=== PATIENT | male | born 1995 | race Caucasian/White ===

== ENCOUNTER 2018-06-24 17:55 | Emergency (ER) | payer MEDICAID ==
[~2018-06-24] VITALS: Ht 180.3 cm; Wt 69.5 kg
[~2018-06-24 17:55] MED LIST: ALBE200T2 PO; CYCL-1 PO; NAPR-1166 PO
[2018-06-24 18:32] VITALS: BP 142/55
[2018-06-24] MEDS ORDERED: HYDR-3965 PO (20:30)
[2018-06-24] MEDS ORDERED: HYDROcodone/acetaminophen 5mg/325mg tablet PO ONE (20:30)
== END 2018-06-24 21:09 | disposition home or self-care (01) ==
LOC: ER 17:56
DX: S62.336A Displaced fracture of neck of fifth metacarpal bone, right hand, initial encounter for closed fracture (principal); Z79.899 Other long term (current) drug therapy; Y04.0XXA Assault by unarmed brawl or fight, initial encounter; Y93.71 Activity, boxing; Y92.89 Other specified places as the place of occurrence of the external cause; Y99.8 Other external cause status
CPT/HCPCS: 29125; 73130; 99283

== ENCOUNTER 2019-03-18 18:04 | Emergency (ER) | payer MEDICAID ==
[~2019-03-18] VITALS: Ht 180.3 cm; Wt 80.0 kg
[2019-03-18 18:16] VITALS: BP 118/72
--- NOTE | 2019-03-18 18:53 | NUR ---
CALLED [facility] AT 18:52 SHE WILL BE IN [place]
[2019-03-18] MEDS ORDERED: HYDROcodone/acetaminophen 5mg/325mg tablet PO ONE (20:55)
[2019-03-18] MEDS ORDERED: ondansetron 4mg rapidly disintigrating tab PO ONE (20:55)
[2019-03-18 21:13] LABS: CLARITY,URINE CLEAR (Clear); COLOR,URINE YELLOW (Yellow); GLUCOSE, URINE NEGATIVE (Neg); KETONES,URINE NEGATIVE (Neg); LEUKOCYTE ESTERASE ,URINE NEGATIVE (Neg); NITRITES, URINE NEGATIVE (Neg); OCCULT BLOOD,URINE NEGATIVE (Neg); PROTEIN,URINE NEGATIVE (Neg)
[2019-03-18 21:18] LABS: UA COLLECTION TYPE CLN CATCH MIDSTREAM
== END 2019-03-18 22:06 | disposition home or self-care (01) ==
LOC: ER 18:05
DX: I86.1 Scrotal varices (principal); R42 Dizziness and giddiness; R11.0 Nausea; Z79.899 Other long term (current) drug therapy
CPT/HCPCS: 76870; 81003; 99284

== ENCOUNTER 2019-08-22 14:52 | Emergency (ER) | payer SELFPAY ==
[~2019-08-22] VITALS: Ht 180.3 cm; Wt 85.0 kg
[2019-08-22 15:21] LABS: BASOPHILS % (AUTO) 0.7 % (0-1); EOSINOPHILS # (AUTO) 0.2 X10'3 (0-0.9); EOSINOPHILS % (AUTO) 3.5 % (0-6); HEMOGLOBIN 14.5 g/dl (14.0-17.9); LYMPHOCYTES # (AUTO) 1.8 X10'3 (1.1-4.8); LYMPHOCYTES % (AUTO) 28.4 % (21-51); MEAN CORPUSCULAR HEMOGLOBIN 31.2 PG (27.0-31.0); MEAN CORPUSCULAR HGB CONC 33.8 g/dL (33.0-36.5); MEAN CORPUSCULAR VOLUME 92.4 FL (78-98); MEAN PLATELET VOLUME 7.2 FL (7.4-10.4); MONOCYTES # (AUTO) 0.5 X10'3 (0-0.9); MONOCYTES % (AUTO) 8.2 % (2-12); NEUTROPHILS # (AUTO) 3.7 X10'3 (1.8-7.7); NEUTROPHILS % (AUTO) 59.2 % (42-75); PLATELET COUNT 235 X10'3 (140-440); RED BLOOD COUNT 4.65 X10'6 (4.70-6.10); RED CELL DISTRIBUTION WIDTH 12.7 % (11.5-14.5); WHITE BLOOD COUNT 6.3 X10'3 (4.5-11.0)
[2019-08-22 15:32] LABS: ALANINE AMINOTRANSFERASE 28 U/L (12-78); ALBUMIN/GLOBULIN RATIO 1.2 (1.1-1.5); ALKALINE PHOSPHATASE 78 IU/L (46-116); ANION GAP 8 (8-16); ASPARTATE AMINO TRANSFERASE 29 U/L (10-37); BILIRUBIN,TOTAL 0.3 MG/DL (0.1-1.0); BLOOD UREA NITROGEN 17 MG/DL (7-18); BUN/CREATININE RATIO 16.2 (5.4-32.0); CALCIUM 9.4 MG/DL (8.5-10.1); CHLORIDE 105 MMOL/L (99-107); CREATININE 1.05 MG/DL (0.60-1.10); GLUCOSE 85 MG/DL (70-104); SODIUM 143 MMOL/L (135-145); TOTAL PROTEIN 7.3 G/DL (6.4-8.2); eGFR 88 ML/MIN
[2019-08-22 16:13] LABS: D-DIMER < 0.19 MG/L FEU (0-0.50)
[2019-08-22 16:49] VITALS: BP 120/62
== END 2019-08-22 16:52 | disposition home or self-care (01) ==
LOC: ER 14:53
DX: R09.1 Pleurisy (principal); R07.89 Other chest pain; R06.02 Shortness of breath; Z72.89 Other problems related to lifestyle; Z79.899 Other long term (current) drug therapy
CPT/HCPCS: 36415; 71045; 80053; 84484; 85025; 85379; 93005; 99285

== ENCOUNTER 2021-11-24 17:24 | Emergency (ER) | payer MEDICAID ==
[~2021-11-24] VITALS: Ht 180.3 cm; Wt 79.0 kg
[~2021-11-24 17:24] MED LIST changes: +ALBE200T14 PO; -ALBE200T2 PO
[2021-11-24 18:00] VITALS: BP 129/83
[2021-11-24] MEDS ORDERED: normal saline 1000ml 1,000 ML IVB ONE (18:10)
[2021-11-24] MEDS ORDERED: normal saline 1000ML IV soln IVB ONE ×2 (18:25→18:50)
[2021-11-24] MEDS ORDERED: ondansetron/PF 4mg/2ml inj IV ONE (18:35)
[2021-11-24 18:45] LABS: BASOPHILS % (AUTO) 0.2 % (0-1); EOSINOPHILS % (AUTO) 0 % (0-6); HEMATOCRIT 46.8 % (42.0-52.0); HEMOGLOBIN 15.7 g/dl (14.0-17.9); LYMPHOCYTES # (AUTO) 0.6 X10'3 (1.1-4.8); LYMPHOCYTES % (AUTO) 4.1 % (21-51); MEAN CORPUSCULAR HEMOGLOBIN 30.5 PG (27.0-31.0); MEAN CORPUSCULAR HGB CONC 33.5 g/dL (33.0-36.5); MEAN CORPUSCULAR VOLUME 91.1 FL (78-98); MEAN PLATELET VOLUME 7.9 FL (7.4-10.4); MONOCYTES # (AUTO) 0.5 X10'3 (0-0.9); MONOCYTES % (AUTO) 3.7 % (2-12); NEUTROPHILS # (AUTO) 12.8 X10'3 (1.8-7.7); PLATELET COUNT 296 X10'3 (140-440); RED BLOOD COUNT 5.14 X10'6 (4.70-6.10); RED CELL DISTRIBUTION WIDTH 13.7 % (11.5-14.5); WHITE BLOOD COUNT 13.9 X10'3 (4.5-11.0)
[2021-11-24 18:47] LABS: ALBUMIN 5.5 G/DL (3.4-5.0); ANION GAP 10 (8-16); BLOOD UREA NITROGEN 30 MG/DL (7-18); BUN/CREATININE RATIO 12.9 (5.4-32.0); CALCIUM 9.6 MG/DL (8.5-10.1); CHLORIDE 102 MMOL/L (99-107); CREATININE 2.32 MG/DL (0.60-1.10); GLUCOSE 106 MG/DL (70-104); SODIUM 137 MMOL/L (135-145); TOTAL CARBON DIOXIDE 24.8 MMOL/L (24-32); eGFR 34 ML/MIN
[2021-11-24 20:15] LABS: CREATINE KINASE 958 U/L (39-308)
== END 2021-11-24 21:29 | disposition home or self-care (01) ==
LOC: ER 17:25
DX: E86.0 Dehydration (principal)
CPT/HCPCS: 36415; 80048; 82550; 85025; 96360; 96361; 99283; J7030